=== PATIENT | female | born 1960 | race Caucasian/White ===

== ENCOUNTER → 2016-09-23 | Outpatient (CLI) | payer OTHER ==
[~2016-09-23] MED LIST: ACYCLOVIR 400M400 MG PO; FOLIC ACID 1MG T1 MG PO; KEFLEX 500MG.500 MG PO; METHYLTREXATE PO; NAPROXEN SODIU500 MG PO; PLAQUENIL200 MG PO
--- NOTE | 2016-09-23 20:24 | RADIOLOGY REPORT PS360 ---
FOOT-LT-3 VIEWS INDICATION: Left foot pain. Heel pain. No trauma. TECHNIQUE: 3 views left foot COMPARISON: None available FINDINGS:. Bones well mineralized. Tarsals unremarkable. Toes and metatarsals intact Focal soft tissue swelling noted laterally, overlying the fifth MTP joint. Correlation required. 7. MM. Plantar calcaneal plantar noted. Calcaneus otherwise unremarkable. No fracture nor dislocation apparent. Visualized joint space well maintained. Normal mineralization. No obvious radio opaque foreign bodies.. ------IMPRESSION: 7 mm plantar calcaneal spur. Soft tissue swelling laterally overlying fifth MTP joint
== END ==
LOC: RAD 12:52
DX: M79.672 Pain in left foot (principal)

== ENCOUNTER → 2016-11-11 | Outpatient (CLI) | payer OTHER ==
--- NOTE | 2016-11-11 16:56 | RADIOLOGY REPORT PS360 ---
History and Indications: Family history chest pain shortness of breath. Procedure: Patient exercised on Gordy protocol 11 minutes resting heart rate was 66 beats per resting blood pressure 153/79, with exercise maximum heart rate achieved was 1 66 bpm which is equal to 102% of the maximum predicted heart rate and a blood pressure was 174/70, test was stopped due to shortness of breath and fatigue, patient denied any complained of chest pain during exercise, mild chest pressure was noted in the recovery. Patient has good exercise capacity achieved 12.8 mets of workload on treadmill the blood pressure response to exercise was adequate. Electrocardiogram: Resting electrocardiogram showed sinus rhythm rightward axis, with exercise there is less than 1.[address] segment depression noted from the baseline EKG. The EKG portion of the exercise Myoview is negative for ischemia Cardiac stress and resting SPECT images: Cardiac stress and rest SPECT images were obtained using technetium 99 Myoview 10.1 mCi at rest 30.3 mCi at stress, gated SPECT for analysis of segmental wall motion and calculation of the ejection fraction was also done. Cardiac stress and rest SPECT images show uniform myocardial activity without any segmental perfusion abnormality, computer derived ejection fraction is over 65% with no obvious regional wall motion abnormality, right ventricle is normal size and contractility. Conclusion: 1. The EKG portion of the exercise Myoview is negative for ischemia patient has good exercise capacity achieved 12.8 mets of workload, the blood pressure response to exercise was adequate patient denied any complained of chest pain with exercise, mild chest pressure was noted in the recovery. 2. No obvious scintigraphic evidence of reversible ischemia level of exercise. Computer derived ejection fraction is over 65% with no obvious regional wall motion abnormality, right ventricle is normal size and contractility. 3. Normal exercise Myoview study.
== END ==
LOC: RAD 11-04 06:30
DX: R07.9 Chest pain, unspecified (principal)
CPT/HCPCS: A9502

== ENCOUNTER 2017-08-05 06:08 | Day surgery (SDC) | payer OTHER ==
[2017-08-05 08:32] VITALS: BP 150/83
== END 2017-08-05 08:29 | disposition home or self-care (01) ==
LOC: SDC 06:08
PROVIDERS: Ophthalmology
PROC: 08RJ3JZ Replacement of Right Lens with Synthetic Substitute, Percutaneous Approach (ICD-10-PCS; principal; 2017-08-05 07:30)
DX: H26.9 Unspecified cataract (principal)
CPT/HCPCS: V2632